=== PATIENT | male | born 1990 | race Caucasian/White ===

== ENCOUNTER 2022-02-02 08:44 | Emergency (ER) | payer MEDICAID ==
[~2022-02-02] VITALS: Ht 175.3 cm; Wt 90.9 kg
[2022-02-02 08:56] VITALS: TEMP 97.6
[2022-02-02] MEDS ORDERED: TAB-A-VITE TA400 MCG PO (09:20)
[2022-02-02 09:29] LABS: HEMATOCRIT 39.1 % (42.0-52.0); HEMOGLOBIN 13.4 g/dl (13.5-18.0); MEAN CELL VOLUME 93 fl (80.0-100.0); MEAN CORPUSCULAR HEMOGLOBIN 32 pg (27-31); MEAN CORPUSCULAR HGB CONC 34 g/dl (33.0-37.0); MEAN PLATELET VOLUME 11.3 fl (7.4-10.4); PLATELET COUNT 159 K/mm3 (130-400); RED BLOOD COUNT 4.22 M/mm3 (4.20-5.60); REDCELL DISTRIBUTION WIDTH-CV 12.4 % (11.5-14.5)
[2022-02-02 09:41] LABS: ALBUMIN 3.9 gm/dL (3.5-5.0); BILIRUBIN,TOTAL 0.4 mg/dL (0.2-1.2); CALCIUM 10.4 mg/dL (8.4-10.2); CREATININE, serum 1.01 mg/dL (0.72-1.25); TOTAL PROTEIN 7.9 gm/dL (6.2-8.1)
[2022-02-02 10:01] LABS: BAND 2 % (0-10); EOSINOPHIL 2 % (0-4); LYMPHOCYTE 48 % (20.0-51.0); NEUTROPHILS 36 % (42.0-75.2); PLATELET ESTIMATE NORMAL (NORMAL)
--- NOTE | 2022-02-02 11:02 | NUR ---
[employer] responded to consult in ED for patient who was given the wrong medications this morning at his half-way. Patient lives in a half-way that is ran by [employer]. ALEX contacted [facility] apartment community manager who confirmed patient is their client and advised patient's parents, Nader (ph#[phone]) and Airam are his guardians. ALEX requested Guardianship documents be faxed to be placed on chart. ALEX also contacted patient's father, Nader who confirmed he was aware patient was in ED and was on his way to check on patient. Nader reports patient's "house leader" called and advised she "messed up". Nader advised to his knowledge, patient was given a few incorrect medications which was cause for concern. ALEX collaborated with ED RN who advised patient normally only receives a daily multivitamin, but was given Metformin, Metoprol, Escitalopram, Fenofibrate, and Levothyroxin which are not prescribed to him. Patient to stay in ED for observation at this time. ALEX made report to Adult Protective Services (intake #[id number]).
[2022-02-02 11:55] VITALS: BP 126/97; PULSE 63
== END 2022-02-02 11:55 | disposition home or self-care (01) ==
LOC: COL.ER 08:44
PROVIDERS: Emergency Medicine
DX: T38.3X1A Poisoning by insulin and oral hypoglycemic [antidiabetic] drugs, accidental (unintentional), initial encounter (principal); T44.7X1A Poisoning by beta-adrenoreceptor antagonists, accidental (unintentional), initial encounter; T45.2X1A Poisoning by vitamins, accidental (unintentional), initial encounter; T43.221A Poisoning by selective serotonin reuptake inhibitors, accidental (unintentional), initial encounter; T46.6X1A Poisoning by antihyperlipidemic and antiarteriosclerotic drugs, accidental (unintentional), initial encounter; T38.1X1A Poisoning by thyroid hormones and substitutes, accidental (unintentional), initial encounter; R00.1 Bradycardia, unspecified